=== PATIENT | female | born 1965 | race Caucasian/White ===

== ENCOUNTER 2018-01-29 07:21 | Emergency (ER) | payer BC ==
[~2018-01-29] VITALS: Ht 167.6 cm; Wt 65.8 kg
[2018-01-29] MEDS ORDERED: FISH OIL 1,001000 M2 PO (07:33)
[2018-01-29] MEDS ORDERED: HUMIRA10 MG/0.2 SUBQ (07:33)
[2018-01-29] MEDS ORDERED: CALCIUM 500 +1 EAC5 PO (07:33)
[2018-01-29] MEDS ORDERED: ESTROGEN PATCH (07:34)
[2018-01-29 07:59] LABS: ABSOLUTE EOSINOPHILS 0.1 thou/uL (0.0-0.7); ABSOLUTE LYMPHOCYTES 1.6 thou/uL (0.8-5.3); ABSOLUTE MONOCYTES 0.4 thou/uL (0.0-1.2); ABSOLUTE NEUTROPHILS 2.7 thou/uL (1.6-8.1); BASOPHILS 0.5 %; EOSINOPHILS 2.4 %; HEMATOCRIT 39.2 % (37.0-47.0); HEMOGLOBIN 13.2 gm/dL (12.0-15.0); LYMPHOCYTES 32.7 %; MCH 30.4 pg (26.0-34.0); MCHC 33.7 g/dL (28.0-37.0); MCV 90.2 fL (80.0-100.0); MONOCYTES 8.8 %; MPV 8.2 fl. (7.2-11.1); NUCLEATED RBCS 0 /100WBC; PLATELET COUNT* 259 thou/uL (150-400); POLYS 55.6 %; RBC 4.35 mil/uL (4.20-5.00); RDW-CV 13.4 % (10.5-14.5); WBC 4.9 thou/uL (4.0-11.0)
[2018-01-29 08:10] LABS: APTT 28.9 Seconds (25.0-31.3); PROTIME 9.6 Seconds (9.20-11.50)
[2018-01-29 08:14] LABS: ALBUMIN 3.5 g/dL (3.4-5.0); CALCIUM 8.3 mg/dL (8.5-10.1); CREATININE 0.7 mg/dL (0.6-1.3); POTASSIUM 4.3 mmol/L (3.5-5.1); TOTAL BILIRUBIN 0.3 mg/dL (<0.1-1.0); TOTAL PROTEIN 7.2 g/dL (6.4-8.2)
[2018-01-29 09:13] VITALS: BP 136/80
== END 2018-01-29 09:14 | disposition home or self-care (01) ==
LOC: M.ERS 07:21
PROVIDERS: Personal Emergency Response Attendant
DX: M79.605 Pain in left leg (principal); K50.90 Crohn's disease, unspecified, without complications; Z88.8 Allergy status to other drugs, medicaments and biological substances